=== PATIENT | female | born 1995 | race Caucasian/White ===

== ENCOUNTER 2017-09-21 11:03 | Emergency (ER) | payer SELFPAY ==
[2017-09-21 11:10] VITALS: BP 122/69
--- NOTE | 2017-09-21 11:54 | ER Document Report ---
HPI - HPI Patient complains to provider of: Sore throat Pain Level: 1 Context: Patient is a healthy 21-year-old female complaining of sore throat 2 or 3 days. Patient does have a dry cough. Intermittent headaches. No nausea vomiting or fever. No sick contacts. Denies trouble swallowing, talking or breathing Associated Symptoms: None, Body/muscle aches, Chills, Nonproductive cough, Sore throat. denies: Fever Exacerbated by: Food Relieved by: Denies Similar symptoms previously: No Recently seen / treated by doctor: No - ROS Systems Reviewed and Negative: Yes All other systems reviewed and negative - EENT EENT: REPORTS: Sore Throat - REPRODUCTIVE Reproductive: DENIES: : Past Medical History - General Information source: Patient - Social History Smoking Status: Never Smoker Chew tobacco use (# tins/day): No Frequency of alcohol use: Occasional Drug Abuse: None Lives with: Family Family History: Reviewed & Not Pertinent Patient has suicidal ideation: No Patient has homicidal ideation: No - Medical History Medical History: Negative Neurological Medical History: Reports: Hx Migraine Renal/ Medical History: Denies: Hx Peritoneal Dialysis Psychiatric Medical History: Reports: Hx Bipolar Disorder, Hx Depression, Hx Schizophrenia - Immunizations Immunizations up to date: Yes Hx Diphtheria, Pertussis, Tetanus Vaccination: Yes Vertical Provider Document - CONSTITUTIONAL Agree With Documented VS: Yes Exam Limitations: No Limitations - HEENT HEENT: Atraumatic, PERRLA, Pharyngeal Tenderness, Pharyngeal Erythema Notes: No trismus, drooling or hot potato voice - NECK Neck: Normal Inspection, Supple - RESPIRATORY Respiratory: Breath Sounds Normal, No Respiratory Distress - GI/ABDOMEN Gastrointestinal: Abdomen Soft, Abdomen Non-Tender Course - Re-evaluation Re-evalutation: 09/21/17 11:54 Street physical are consistent with pharyngitis. No signs of Yasmani's, peritonsillar abscess or sepsis. No airway compromise. 09/21/17 12:27 Rapid strep is negative. A throat culture will be added. Patient will be treated symptomatically. Home care, primary care follow-up and ED return precautions discussed with patient. Patient is agreeable with plan and stable for discharge - Vital Signs Vital signs: Temp Pulse Resp BP Pulse Ox 98.0 F 84 16 122/69 99 09/21/17 11:08 09/21/17 11:08 09/21/17 11:08 09/21/17 11:08 09/21/17 11:08 Discharge - Discharge Clinical Impression: Sore throat Condition: Stable Disposition: HOME, SELF-CARE Instructions: Sore Throat ([facility]) Additional Instructions: Your strep test is negative your symptoms are most likely related to an upper respiratory illness and postnasal drainage Recommend [id number] antihistamine/decongestant for symptom control Lozenges and salt water gargles for comfort Tylenol/ibuprofen as needed Follow-up with your primary care if pain persists or return to ER for any worsening Forms: Return to Work Referrals: AYANA LEIGH PA-C [Primary Care Provider] - Follow up as needed
== END 2017-09-21 12:36 | disposition home or self-care (01) ==
LOC: ER 11:03
DX: J02.9 Acute pharyngitis, unspecified (principal); R05 Cough; R51 Headache
CPT/HCPCS: 87070; 87880; 99283